=== PATIENT | male | born 1940 | race Caucasian/White ===

== ENCOUNTER 2024-01-29 02:22 | Emergency (ER) | payer BC, MEDICARE ==
[~2024-01-29] VITALS: Ht 177.8 cm; Wt 88.5 kg
[2024-01-29 02:41] LABS: BASOPHILS PERCENT AUTO 1 % (0-2); EOSINOPHILS ABSOLUTE AUTO 0.49 K/mm3 (0.00-0.68); EOSINOPHILS PERCENT AUTO 6 % (0-6); Hemoglobin 11.6 g/dL (13.5-17.5); IMMATURE GRAN ABSOLUTE AUTO 0.01 K/mm3 (0.00-0.10); IMMATURE GRAN PERCENT AUTO 0 % (0-1); LYMPHOCYTES ABSOLUTE AUTO 3.53 K/mm3 (0.84-5.20); LYMPHOCYTES PERCENT AUTO 45 % (21-46); MONOCYTES PERCENT AUTO 10 % (4-13); Mean Corpuscular HGB 30.6 pg (26.0-34.0); Mean Corpuscular HGB Conc 35.2 g/dL (31.5-36.5); Mean Corpuscular Volume 87 fL (80-100); Mean Platelet Volume 9.6 fL (9.1-12.4); NEUTROPHILS ABSOLUTE AUTO 2.97 K/mm3 (1.96-9.15); NEUTROPHILS PERCENT AUTO 38 % (41-73); Platelet Count 285 K/mm3 (150-400); RDW Coefficient Variation 12.4 % (11.7-14.2); RDW Standard Deviation 39.5 fL (35.1-46.3); Red Blood Cell Count 3.79 M/mm3 (4.30-5.90)
[2024-01-29] MEDS ORDERED: Ondansetron HCl 2 MG / ML 2ML Vial IV ONE (02:55)
[2024-01-29 03:01] LABS: Albumin, Blood 3.2 g/dL (3.4-5.0); Bilirubin, Total 0.3 mg/dL (0.1-1.0); Bun/Creatinine Ratio 20.2 (12.0-20.0); Calcium, Blood 8.6 mg/dL (8.5-10.1); Creatinine, Blood 1.09 mg/dL (0.60-1.20); Globulin, Blood 3.3 g/dL (2.2-4.0); Potassium, Blood 3.5 mmol/L (3.5-5.5); Total Protein, Blood 6.5 g/dL (6.4-8.2)
[2024-01-29] MEDS ORDERED: Metoclopramide HCl 5MG / ML 2ML Vial IV ONE (04:10)
[2024-01-29] MEDS ORDERED: METO5A PO (05:23)
[2024-01-29 05:30] VITALS: BP 123/58
== END 2024-01-29 05:49 | disposition home or self-care (01) ==
LOC: ER 02:22
PROVIDERS: Emergency Medicine
DX: I44.0 Atrioventricular block, first degree (principal); I44.4 Left anterior fascicular block; R55 Syncope and collapse; R11.2 Nausea with vomiting, unspecified; R19.7 Diarrhea, unspecified; E86.0 Dehydration
CPT/HCPCS: 80053; 83690; 83735; 83880; 84484; 85025; 93005; 93010; 99284-25; J2405; J2765

== ENCOUNTER → 2024-10-30 | Outpatient (CLI) | payer BC, MEDICARE ==
[~2024-10-30] MED LIST: METO5A PO
== END | disposition home or self-care (01) ==
LOC: LAB 12:08 → LAB SHORT 12:08
DX: L08.0 Pyoderma (principal)
CPT/HCPCS: 87070; 87205